=== PATIENT | female | born 1975 | race Caucasian/White ===

== ENCOUNTER 2016-12-03 12:19 | Emergency (ER) | payer OTHER ==
[2016-12-03 12:43] VITALS: TEMP 97.5
[2016-12-03] MEDS ORDERED: fentaNYL 100 MCG/2 ML INJ IVP ONE (13:33)
[2016-12-03] MEDS ORDERED: ONDANSETRON 4 MG/2 ML VIAL IVP ONE (13:33)
--- NOTE | 2016-12-03 13:57 | EDPHY ---
H & P Time Seen by Provider: 12/03/16 13:34 HPI/ROS: CHIEF COMPLAINT: Left elbow pain HISTORY OF PRESENT ILLNESS: The patient is a 41-year-old female who presents emergency department with severe left elbow pain. The patient was roller skating and playing "[employer]." She was struck in fell back. She tried to catch herself with her hand. She felt a pop and had severe pain in her left elbow. Her pain is severe. It does not radiate. She denies any pain in her shoulder, forearm, wrist or hand. She has had no previous elbow injuries. No numbness or tingling. REVIEW OF SYSTEMS: My complete review of systems is negative except as mentioned in the HPI. Past Medical/Surgical History: Denies Past surgical history: Hysterectomy, Social history: The patient denies smoking Smoking Status: Never smoked Physical Exam: Vitals noted GENERAL: Well-appearing, in no acute distress, alert. HEAD: No evidence of trauma. EYES: PERRLA, EOMI, normal to inspection. ENT: Airway intact, no dental or oral injury, no malocclusion, no hemotympanum , normal external examination. NECK: The trachea is midline. There is no crepitus. The C-spine is nontender. NEXUS criteria is negative (no midline tenderness, no distracting injury, no altered mental status, no recent alcohol use, no focal neurologic deficit). RESPIRATORY: Clear to auscultation bilaterally, no rales, rhonchi or wheezing. There is no crepitus or palpable rib fractures. CVS: Regular rate and rhythm, no rubs, murmurs, or gallops. ABDOMEN: Soft, nontender, nondistended, normal bowel sounds, no bruising or abrasions. Pelvis: Stable. No tenderness palpation. Hips full range of motion. BACK: Normal to inspection, no spinal tenderness, no spinal step off, no notable bruising or abrasions. SKIN: Normal color, warm, dry. No pallor or diaphoresis. EXTREMITIES: Right upper extremity: Atraumatic. No visible signs of trauma. No tenderness palpation. Neurovascular intact distally. Left upper extremity: No shoulder tenderness to palpation. No shoulder deformity. No clavicular tenderness or scapular tenderness. Patient has a deformity of her left elbow. There is step-off the olecranon. There is no crepitus. There is mild swelling. The patient is neurovascularly intact distally.. Right lower extremity: Atraumatic. No visible signs of trauma. No tenderness palpation. Neurovascular intact distally. Left lower extremity: Atraumatic. No visible signs of trauma. No tenderness palpation. Neurovascular intact distally. NEURO/PSYCH: Alert and oriented x 3, GCS 15, normal mood and affect, normal motor sensory exam. Constitutional: Initial Vital Signs Temperature (C) 36.4 C 12/03/16 12:39 Heart Rate 76 12/03/16 12:39 Respiratory Rate 16 12/03/16 12:39 Blood Pressure 100/74 12/03/16 12:39 O2 Sat (%) 100 12/03/16 12:39 O2 Delivery Mode Room Air Allergies/Adverse Reactions: No Known Allergies Allergy (Unverified 12/03/16 12:39) Home Medications: Medication Instructions Recorded Hydrocodone/APAP 5/325 [[place] 1 - 2 tab PO Q4 #13 tab 12/03/16 5/325 (RX)] Lopreeza 0.5 mg-0.1 mg Tablet 12/03/16 Ondansetron Odt [Zofran Odt 4 mg 4 mg PO Q4PRN PRN #7 tab 12/03/16 (*)] Medical Decision Making - Diagnostics Imaging Results: Imaging Impressions Elbow X-Ray 12/03/16 12:43 Impression: Posterior elbow dislocation. Shoulder X-Ray 12/03/16 12:43 Impression: None. No fracture. 2. Flail scapula versus patient positioning? Elbow X-Ray 12/03/16 13:42 Impression: Prereduction at 13:27 Findings: The elbow is relocated. There is a tiny cortical fracture fragment adjacent to the radial head. Impression: Successful reduction. Procedures: Procedure: Left elbow reduction Indication: Left elbow dislocation The patient consented verbally. I discussed the pros and cons of conscious sedation. She would prefer no conscious sedation at thi time. In usual fashion using traction counter traction the elbow was reduced. The patient tolerated the procedure well. Post reduction the patient was neurovascularly intact distally. ED Course/Re-evaluation: In the emergency department I discussed possible etiologies with the patient. She had an x-ray of her left elbow. Patient was given fentanyl 100 mcg IV and Zofran 4 mg IV. Left elbow x-ray: Patient has a dislocation of her left elbow. Please refer the dictated report. I discussed the results with the patient. I discussed treatment options. I offered the patient conscious sedation. She would prefer for me to attempt reduction without conscious sedation. She just received fentanyl. Patient's elbow was reduced using manual manipulation on the 2nd attempt. Please refer the procedure note. The patient tolerated the procedure well. Post procedure the patient was neurovascularly intact distally. Post procedure x-ray was performed. Left elbow x-ray: Please refer the dictated report. No dislocation. Normal alignment. There is a small cortical chip fracture. No visible fracture. I discussed the results with the patient. She is aware of the relocation and a small cortical chip fracture. She was placed in a shoulder sling. She was neurovascularly intact distally post sling placement prior to discharge. She was given warnings prior to leaving. She will follow up with Orthopedics. Differential Diagnosis: My differential includes but is not limited to fracture, dislocation, contusion , sprain, nerve injury, compartment syndrome - Data Points Medications Given: Discontinued Medications Fentanyl (Sublimaze) 100 mcg IVP EDNOW ONE Stop: 12/03/16 13:34 Last Admin: 12/03/16 13:33 Dose: 100 mcg Ondansetron HCl (Zofran) 4 mg IVP EDNOW ONE Stop: 12/03/16 13:34 Last Admin: 12/03/16 13:33 Dose: 4 mg Departure - Departure Disposition: Home, Routine, Self-Care Clinical Impression: Dislocation of left elbow Qualifiers: Encounter type: initial encounter Qualified Code(s): S53.105A - Unspecified dislocation of left ulnohumeral joint, initial encounter Condition: Good Instructions: Elbow Dislocation (ED) Additional Instructions: You dislocated your elbow. It is now reduced. You have a small cortical chip fracture. This should heal over time. Keep your sling in place. You need close follow-up with Orthopedics. Call Monday morning to make an appointment. Return with increasing pain, weakness, numbness or any other concerns. Referrals: RAYNE GUERIN [Primary Care Provider] - As per Instructions Hipolito Schmidt MD [Medical Doctor] - 5-7 days, call for appt. Prescriptions: Hydrocodone/APAP 5/325 [[place] 5/325 (RX)] 1 - 2 tab PO Q4 #13 tab Ondansetron Odt [Zofran Odt 4 mg (*)] 4 mg PO Q4PRN PRN #7 tab PRN Reason: For Nausea & Vomiting
[2016-12-03 14:56] VITALS: BP 112/80; PULSE 68; RESP 14; O2SAT 98
== END 2016-12-03 14:56 | disposition home or self-care (01) ==
PROC: 0RSMXZZ Reposition Left Elbow Joint, External Approach (ICD-10-PCS; principal; 2016-12-03)
DX: S53.125A Posterior dislocation of left ulnohumeral joint, initial encounter (principal); V00.131A Fall from skateboard, initial encounter; Y92.331 Roller skating rink as the place of occurrence of the external cause; Y99.8 Other external cause status; Y93.51 Activity, roller skating (inline) and skateboarding
CPT/HCPCS: 96374; J2405; J3010